=== PATIENT | female | born 2000 | race Caucasian/White ===

== ENCOUNTER 2022-06-15 10:43 | Emergency (ER) | payer OTHER ==
[~2022-06-15] VITALS: Ht 157.5 cm; Wt 64.9 kg
[~2022-06-15 10:43] MED LIST: PNV91TAB8 PO
[2022-06-15 10:48] VITALS: BP 104/60
--- NOTE | 2022-06-15 10:54 | NUR ---
PT AMBULATED TO BED 03.
--- NOTE | 2022-06-15 11:27 | NUR ---
22 y/o female bib self refered from [facility]. Patient was 6 weeks and took pill 2 weeks ago. Patient is still having on going cramping, bleeding and clotting. Patient has 7/10 pelvic pain. Per patient she is "having lollipop sized clots." [id number] Medical History: Denies NKDA
--- NOTE | 2022-06-15 13:50 | NUR ---
Patient ambulated with steady gait to restroom.
[2022-06-15 13:55] LABS: BASOPHILS % (AUTO) 0.4 % (0.0-2.0); EOSINOPHILS # (AUTO) 0.2 K/uL (0-0.4); EOSINOPHILS % (AUTO) 2.3 % (0.0-4.0); HEMATOCRIT 22.7 % (36-48); HEMOGLOBIN 7.8 g/dL (12.0-16.0); LYMPHOCYTES # (AUTO) 1.5 K/uL (2.5-16.5); LYMPHOCYTES % (AUTO) 20.8 % (20.5-51.1); MEAN CORPUSCULAR HEMOGLOBIN 30 pg (27-31); MEAN CORPUSCULAR HGB CONC 34 g/dL (33-37); MEAN CORPUSCULAR VOLUME 88.6 fL (80-94); MONOCYTES # (AUTO) 0.3 K/uL (0.8-1.0); MONOCYTES % (AUTO) 4.4 % (1.7-9.3); NEUTROPHILS # (AUTO) 5.3 K/uL (1.8-7.7); NEUTROPHILS % (AUTO) 72.1 % (42.2-75.2); PLATELET COUNT (AUTO) 217 K/uL (140-450); RED BLOOD CELL COUNT(AUTO) 2.56 MIL/uL (4.20-5.40); RED CELL DISTRIBUTION WIDTH 13.8 % (11.6-13.7); WHITE BLOOD COUNT (AUTO) 7.3 K/uL (4.8-10.8)
[2022-06-15] MEDS: ACETAMINOPHEN EXTRA STRENGTH 500 MG TAB PO ONE (16:02)
[2022-06-15] MEDS: METHYLERGONOVINE 0.2 MG/ML AMP IM ONE ×2 (16:04→17:08)
--- NOTE | 2022-06-15 16:40 | NUR ---
Patient is resting in bed, respirations are even and unlabored. Vital signs stable. Needs met by staff.
[2022-06-15] MEDS: IBUPROFEN 600 MG TAB PO ONE (17:39)
[2022-06-15 18:04] VITALS: BP 124/69
--- NOTE | 2022-06-15 18:04 | NUR ---
The patient's care was reviewed and supervised by Ashly Acosta RN.
--- NOTE | 2022-06-15 18:04 | NUR ---
Patient discharged with v/s stable. Written and verbal after care instructions given. Patient verbalized understanding. Ambulatory with steady gait. All questions addressed prior to discharge. Advised to follow up with PMD.
--- NOTE | 2022-06-15 18:37 | NUR ---
Note karin in ED - 06/15/22 at 1837 by MIRANDA Patient discharged with v/s stable. Written and verbal after care instructions given. Patient verbalized understanding. Ambulatory with steady gait. All questions addressed prior to discharge. Advised to follow up with PMD.
== END 2022-06-15 18:04 | disposition home or self-care (01) ==
LOC: MED 10:43
DX: O03.4 Incomplete spontaneous abortion without complication (principal); Z3A.01 Less than 8 weeks gestation of pregnancy; Z79.899 Other long term (current) drug therapy
CPT/HCPCS: 36415; 76817; 81002; 81025; 85025; 96372; 99284; J2210; Q0092